=== PATIENT | female | born 1955 | race Hispanic/Latino ===

== ENCOUNTER 2019-01-01 07:10 | Day surgery (SDC) | payer BC ==
[2018-12-31 09:10] VITALS: BMI 26.4
--- NOTE | 2019-01-01 16:10 | OP ---
DATE OF PROCEDURE: 01/01/2019 PREPROCEDURE DIAGNOSES: 1. Family history of colorectal cancer. 2. Screening colonoscopy, high risk. 3. Previously normal colonoscopy in 2012. POSTPROCEDURE DIAGNOSES: 1. Two small polyps, one in the ascending colon distally and one in the sigmoid colon ranging from 4 to 2 mm in size, removed by cold snare polypectomy. 2. Diverticulosis coli without signs of inflammation. RECOMMENDATIONS: 1. Await histopathology. 2. Repeat colonoscopy in 5 years. 3. High-fiber diet for diverticulosis. ANESTHESIA: TIVA. PROCEDURE IN DETAIL: The patient was informed of the risks, benefits, and possible complications of endoscopy including perforation, reaction to medication and aspiration, informed consent was obtained. The patient was brought to endoscopy suite, where she was sedated in gradual fashion. Once she was comfortable, a rectal examination was performed, which was normal. The endoscope was that advanced through the anal canal through the colon to the cecum, which was identified by the ileocecal valve and appendiceal orifice. Withdrawal time was over 10 minutes. The prep was good. The patient tolerated the procedure well. There was a diminutive 4 mm polyp in the ascending colon just proximal to the hepatic flexure, removed by cold snare polypectomy. There was good hemostasis. There was diminutive polyp 2 mm in size, removed by cold snare polypectomy and biopsy forceps from the distal sigmoid colon and submitted to Pathology. There was diverticulosis coli in the descending and sigmoid colon with no signs of inflammation. Retroflexed views were normal. The scope was removed. The patient tolerated the procedure well. There were no complications. Job ID: [id number]
== END 2019-01-01 11:15 | disposition home or self-care (01) ==
LOC: SDC 07:10
PROVIDERS: ATTEND Internal Medicine Gastroenterology
PROC: 0DBN8ZZ Excision of Sigmoid Colon, Via Natural or Artificial Opening Endoscopic (ICD-10-PCS; principal; 2019-01-01)
PROC: 0DBK8ZZ Excision of Ascending Colon, Via Natural or Artificial Opening Endoscopic (ICD-10-PCS; principal; 2019-01-01)
DX: Z12.11 Encounter for screening for malignant neoplasm of colon (principal); D12.6 Benign neoplasm of colon, unspecified; K57.30 Diverticulosis of large intestine without perforation or abscess without bleeding; I10 Essential (primary) hypertension; E07.9 Disorder of thyroid, unspecified; Z80.0 Family history of malignant neoplasm of digestive organs; Z83.71 Family history of colonic polyps; Z79.899 Other long term (current) drug therapy; Z88.2 Allergy status to sulfonamides; Z88.5 Allergy status to narcotic agent; Z88.8 Allergy status to other drugs, medicaments and biological substances
CPT/HCPCS: 88305